=== PATIENT | female | born 2000 | race Caucasian/White ===

== ENCOUNTER 2020-10-22 17:52 | Emergency (ER) | payer MEDICAID ==
[~2020-10-22] VITALS: Ht 162.6 cm; Wt 54.5 kg
[2020-10-22 19:50] VITALS: BP 102/59
[2020-10-22 20:24] LABS: COVID AG,FIA SOURCE NASOPHARYNGEAL
== END 2020-10-22 21:16 | disposition home or self-care (01) ==
LOC: EMS 17:55
DX: J30.9 Allergic rhinitis, unspecified (principal); L30.9 Dermatitis, unspecified; Z20.822 Contact with and (suspected) exposure to COVID-19
CPT/HCPCS: 87426; 99283

== ENCOUNTER 2023-09-02 02:52 | Emergency (ER) | payer MEDICAID, OTHER ==
[~2023-09-02] VITALS: Ht 165.1 cm; Wt 61.7 kg
[2023-09-02 02:54] VITALS: BP 109/66; PULSE 86; RESP 16; TEMP 98.6
[2023-09-02 03:20] LABS: APPEARANCE,URINE CLEAR (CLEAR); BILIRUBIN,URINE NEGATIVE (NEGATIVE); COLOR,URINE LIGHT YELLOW (YELLOW); GLUCOSE, URINE (UA) NEGATIVE (NEGATIVE); KETONES,URINE NEGATIVE (NEGATIVE); LEUKOCYTE ESTERASE ,URINE MODERATE (NEGATIVE); NITRATE,URINE NEGATIVE (NEGATIVE); OCCULT BLOOD,URINE LARGE (NEGATIVE); PH,URINE 6.5 (5.0-8.0); PROTEIN,URINE 30-70 mg/dL (NEGATIVE); SPECIFIC GRAVITIY, URINE 1.012 (1.003-1.030); UROBILINOGEN,URINE <=1.0 mg/dL (<=1.0)
[2023-09-02 03:29] LABS: BACTERIA,URINE Few /HPF (None Seen); SQUAMOUS EPITHELIAL CELL,UR Few /LPF (None Seen); WBC,URINE 26-50 /HPF (0-5)
[2023-09-02] MEDS ORDERED: PHEN-846 PO (04:03)
[2023-09-02] MEDS ORDERED: CEPH-558 PO (04:03)
[2023-09-02] MEDS: CEPHALEXIN MONOHYDRATE 500 MG CAPSULE PO ONE (04:10)
[2023-09-02] MEDS: PHENAZOPYRIDINE HCL 100 MG TABLET PO ONE (04:10)
== END 2023-09-02 04:13 | disposition home or self-care (01) ==
LOC: EMS 02:53
DX: N39.0 Urinary tract infection, site not specified (principal)
CPT/HCPCS: 81001; 87086; 87186; 99283